=== PATIENT | male | born 1975 | race Caucasian/White ===

== ENCOUNTER 2019-10-27 08:22 | Emergency (ER) | payer BC ==
[2019-10-27] MEDS ORDERED: KETOROLAC 30 MG/ML VIAL IM ONE (08:50)
[2019-10-27] MEDS ORDERED: ORPHENADRINE CITRATE 60MG/2ML VIAL IM ONE (08:50)
--- NOTE | 2019-10-27 08:59 | Emergency Department Record ---
History of Present Illness - General Chief Complaint: Back Pain/Injury Stated Complaint: BACK PAIN Time Seen by Provider: 10/27/19 08:40 Source: Patient Mode of Arrival: EMS Limitations: No limitations - History of Present Illness Initial Comments: The patient is here due to back pain since yesterday. The onset was after bending yesterday and then he felt pain and spasm in the mid to low back on both sides. The pain is MUCH worse with any bending or movement. The pain does radiate to the R buttock at times but there is no radiation to the legs. The p atient also denies any leg numbness, weakness, or any bowel or bladder issues. He does have a long hx of chronic pain similar to this and normally sees a chiropracter. MD Complaint: Back pain Onset/Timin -: Days(s) Similar Symptoms Previously: Yes Place: Home Radiation: Buttocks Severity: Mild Severity scale (1-10): 4 Context: Bending - Related Data Previous Rx's Medication Instructions Recorded Cyclobenzaprine HCl [Flexeril] 10 mg PO TID PRN #20 tablet 10/27/19 Hydrocodone/Acetaminophen [[place] 1 - 2 each PO QID #20 tablet 10/27/19 5-325 Tablet] Ibuprofen [Motrin] 800 mg PO TID PRN #20 tab 10/27/19 Allergies Allergy/AdvReac Type Severity Reaction Status Date / Time No Known Drug Allergies Allergy Verified 10/27/19 08:27 Travel Screening - Travel/Exposure Within Last 30 Days Have you traveled within the last 30 days?: No Review of Systems Constitutional: Denies: Chills, Fever Eyes: Denies: Eye discharge ENT: Denies: Congestion Respiratory: Denies: Cough, Dyspnea Past Medical History - SOCIAL HISTORY Smoking Status: Never smoker Alcohol Use: None Drug Use: None - RESPIRATORY Hx Respiratory Disorders: No - CARDIOVASCULAR Hx Cardio Disorders: No - NEURO Hx Neuro Disorders: No - GI Hx GI Disorders: Yes Hx Reflux: Yes - Hx Genitourinary Disorders: No - ENDOCRINE Hx Endocrine Disorders: No - MUSCULOSKELETAL Hx Musculoskeletal Disorders: Yes Hx Back Injury: Yes - PSYCH Hx Psych Problems: No - HEMATOLOGY/ONCOLOGY Hx Hematology/Oncology Disorders: No Family Medical History Any Significant Family History?: Yes Hx HTN: Mother Hx Stroke: Father Physical Exam - General General Appearance: Alert, Oriented x3, Cooperative, No acute distress - Head Head exam: Atraumatic, Normocephalic, Normal inspection - Eye Eye exam: Normal appearance - ENT Throat exam: Normal inspection. negative: Tonsillar erythema, Tonsillar exudate - Neck Neck exam: Normal inspection, Full ROM. negative: Tenderness - Respiratory Respiratory exam: Normal lung sounds bilaterally. negative: Respiratory distress - Cardiovascular Cardiovascular Exam: Regular rate, Normal rhythm, Normal heart sounds - GI/Abdominal GI/Abdominal exam: Soft, Normal bowel sounds. negative: Tenderness - Extremities Extremities exam: Normal inspection, Full ROM, Other (Neg SLR bilaterally.). negative: Tenderness - Back Back exam: Reports: Normal inspection, Muscle spasm (There is significant te nderness and spasm over the lower thoracic and upper lumbar areas.). Denies: Vertebral tenderness Image of Body Front/Back: 1 - Spasm and tenderness location. 2 - Area of tenderness and spasm. - Neurological Neurological exam: Alert, Normal gait, Oriented X3, Reflexes normal. negative: Abnormal gait, Altered, Motor sensory deficit Course Vital Signs 10/27/19 08:24 Temperature 98.8 F Pulse Rate 65 Respiratory 16 Rate Blood Pressure 150/100 Pulse Ox 98 - Reevaluation(s) Reevaluation #1: The patient is doing better but still cannot stand up straight. He has had episodes of this pain where he had to walk hunched over for days at a time similar to this. There is no leg numbness or weakness. 10/27/19 10:07 Reevaluation #2: The patient is doing better at this time but is still having spasms ONLY when moving. Presently he is lying flat on the bed in NO pain or discomfort. He is still not able to stand up but is able to walk with a walker. I did offer to keep the patient in the hospital but he would like to go home. There has been no leg numbness, weakness, or any bowel or bladder incontinence or retention. He is to take the pain medicines and to see his PCP next week for recheck. 10/27/19 10:23 Disposition Disposition: Discharge Clinical Impression: Muscle spasm of back Disposition: Home, Self-Care Condition: (2) Stable Instructions: Muscle Spasm (ED) Additional Instructions: Please rest and take the pain medicines and use the walker as needed. Please see your family doctor later this week for recheck. Return to the ER for any worsening pain, leg numbness, weakness or any bowel or bladder incontinence or retention. Prescriptions: Cyclobenzaprine HCl [Flexeril] 10 mg PO TID PRN #20 tablet PRN Reason: Pain Ibuprofen [Motrin] 800 mg PO TID PRN #20 tab PRN Reason: Pain Hydrocodone/Acetaminophen [[place] 5-325 Tablet] 1 - 2 each PO QID #20 tablet Forms: Patient Portal Access Time of Disposition: 10:37 Quality - Quality Measures Quality Measures: N/A - Blood Pressure Screening View Details: Yes Does Patient Have Any of the Following: No Blood Pressure Classification: Pre-Hypertensive BP Reading Systolic Measurement: 133 Diastolic Measurement: 71 Screening for High Blood Pressure: < Pre-Hypertensive BP, F/U Documented > [G8950] Pre-Hypertensive Follow-up Interventions: Referral to alternative/primary care provider.
[2019-10-27] MEDS ORDERED: MORPHINE SULFATE 5 MG/ML VIAL IM ONE (09:26)
[2019-10-27] MEDS ORDERED: ONDANSETRON 4 MG ODT TABLET SL ONE (09:26)
== END 2019-10-27 10:49 | disposition home or self-care (01) ==
LOC: ER 08:22
DX: M62.830 Muscle spasm of back (principal)
CPT/HCPCS: 99284 ×2; 96372; J1885; J2360